=== PATIENT | female | born 1990 | race Caucasian/White ===

== ENCOUNTER 2018-10-23 02:08 | Observation (INO) | payer MEDICAID ==
[~2018-10-23] VITALS: Ht 162.6 cm; Wt 75.0 kg
[~2018-10-23 02:08] MED LIST: ACET-1600 PO; IBUP200T64 PO; TYLENOL PM
--- NOTE | 2018-10-23 03:00 | NUR ---
PT HERE FOR ABD ELDONMPING. VSS. UA SENT TO LAB. LAB AT BEDSIDE. CALL LIGHT IN REACH
[2018-10-23 03:16] LABS: HCG UR SG 1.033 (1.003-1.030); MICROSCOPIC INDICATED
[2018-10-23 03:17] LABS: CULTURE INDICATED? YES
[2018-10-23 03:21] LABS: BASOPHILS # (AUTO) 0.04 x10^3/uL (0-0.1); BASOPHILS % (AUTO) 0 % (0-1); EOSINOPHILS # (AUTO) 0.15 x10^3/uL (0-0.4); EOSINOPHILS % (AUTO) 2 % (1-7); LYMPHOCYTES % (AUTO) 31 % (22-44); MD NO; MEAN CORPUSCULAR HEMOGLOBIN 29.6 pg (27.0-34.8); MEAN CORPUSCULAR HGB CONC 33.7 g/dL (32.4-35.8); MEAN CORPUSCULAR VOLUME 87.8 fL (80-100); MEAN PLATELET VOLUME 7.5 fL (7.4-10.4); MONOCYTES # (AUTO) 0.51 x10^3/uL (0.2-0.8); MONOCYTES % (AUTO) 5 % (2-9); NEUTROPHILS # (AUTO) 6.19 x10^3/uL (1.8-6.8); NEUTROPHILS % (AUTO) 62 % (42-75); PLATELET COUNT 390 x10^3/uL (130-400); RED BLOOD COUNT 4.12 x10^6/uL (3.82-5.3); RED CELL DISTRIBUTION WIDTH 13.6 % (9.6-15.2)
[2018-10-23 03:32] LABS: ALANINE AMINOTRANSFERASE 18 U/L (12-78); ALBUMIN 3.3 g/dL (3.4-5.0); ANION GAP 6 mmol/L (5-15); CALCIUM 8.4 mg/dL (8.5-10.1); CHLORIDE 105 mmol/L (98-107); CREATININE 0.85 mg/dL (0.55-1.02)
[2018-10-23 03:35] LABS: ALKALINE PHOSPHATASE 91 U/L (45-117); BILIRUBIN,TOTAL 0.2 mg/dL (0.2-1.0); TOTAL PROTEIN 7.6 g/dL (6.4-8.2)
[2018-10-23 04:29] VITALS: BP 98/56
--- NOTE | 2018-10-23 05:02 | NUR ---
PT RESTING. VSS. PT WAITING FOR POWER CHECKER CONSULT. PT IN NAD. CALL LIGHT IN REACH
--- NOTE | 2018-10-23 06:05 | NUR ---
[employer] SUPERVISOR DOC IN SEEING PT AT THIS TIME.
--- NOTE | 2018-10-23 06:18 | NUR ---
Assisted in pt care--all clothing removed and placed in bag. All jewelry placed in baggy. 2 belongings bags placed at bedside. Call light in reach.
--- NOTE | 2018-10-23 06:29 | NUR ---
report to or
[2018-10-23] MEDS ORDERED: FENTANYL PF 100 MCG/2ML ONE ×3 (06:39→08:28)
[2018-10-23] MEDS ORDERED: SUCCINYLCHOLINE 20 MG/ML, 10ML ONE (06:39)
[2018-10-23] MEDS ORDERED: MIDAZOLAM 1 MG/ML, 2ML ONE (06:39)
[2018-10-23] MEDS ORDERED: LIDOCAINE-MPF 2% ,5ML ONE (06:39)
[2018-10-23] MEDS ORDERED: EPINEPHRINE 1 MG/ML, 1ML ONE (06:55)
[2018-10-23] MEDS ORDERED: BUPIVACAINE/PF 0.25% ONE (06:55)
[2018-10-23] MEDS ORDERED: PROPOFOL 10 MG/ML, 20ML ONE (07:05)
[2018-10-23] MEDS ORDERED: CEFAZOLIN 1,000 MG ONE (07:05)
[2018-10-23] MEDS ORDERED: ROCURONIUM 10MG/ML,5ML ONE (07:05)
[2018-10-23] MEDS ORDERED: BUPIVACAINE/PF-EPI 0.25% 1:200K INFIL ONE (07:35)
[2018-10-23] MEDS ORDERED: DEXAMETHASONE 4 MG/ML, 1ML ONE ×2 (07:43)
[2018-10-23] MEDS ORDERED: ONDANSETRON 2MG/ML, 2ML ONE (07:43)
[2018-10-23] MEDS ORDERED: SUGAMMADEX 200 MG/2 ML IVPush ONE (07:58)
[2018-10-23] MEDS ORDERED: OXYcodone 5 MG/5 ML ORAL.SOL UDC PO PRN (08:00)
[2018-10-23] MEDS ORDERED: FENTANYL PF 100 MCG/2ML IV PRN (08:00)
[2018-10-23] MEDS ORDERED: LORazepam 2 MG/ML, 1ML IVPush PRN (08:00)
[2018-10-23] MEDS ORDERED: METOCLOPRAMIDE 5 MG/ML, 2ML IV PRN (08:00)
[2018-10-23] MEDS ORDERED: ACETAMINOPHEN 325 MG TABLET PO PRN (08:00)
[2018-10-23] MEDS ORDERED: MEPERIDINE/PF 25MG/0.5ML IVPush PRN (08:00)
[2018-10-23] MEDS ORDERED: SILVER NITRATE STICK TP ONE (08:11)
[2018-10-23] MEDS ORDERED: HYDROmorphone 2 MG/ML, 1ML ONE ×2 (08:28→11:16)
[2018-10-23] MEDS: HYDROmorphone 2 MG/ML, 1ML IVPush PRN ×2 (08:39→09:05)
[2018-10-23] MEDS ORDERED: OXYcodone/APAP 5/325MG TABLET ONE (10:59)
[2018-10-23] MEDS ORDERED: OXYcodone/APAP 5/325MG TABLET PO PRN (11:00)
[2018-10-23] MEDS ORDERED: IBUPROFEN 200 MG TABLET PO SCH (11:00)
[2018-10-23] MEDS ORDERED: HYDROmorphone 1 MG/ML, 1ML IV PRN (11:00)
[2018-10-23] MEDS ORDERED: OXYC-306 PO (11:41)
[2018-10-23] MEDS ORDERED: IBUP-1222 PO (11:43)
== END 2018-10-23 13:31 | disposition home or self-care (01) ==
LOC: ED 02:22 → EDIP 07:14 → 3NW 09:42
PROVIDERS: ADMIT Obstetrics & Gynecology; ATTEND Obstetrics & Gynecology
DX: O00.101 Right tubal pregnancy without intrauterine pregnancy (principal); F11.10 Opioid abuse, uncomplicated; F15.10 Other stimulant abuse, uncomplicated
CPT/HCPCS: 36415; 59151; 76801; 80053; 81001; 81025; 83690; 84702; 85025; 86901; 87086; 88305; 96374; 99291; G0378; J0171; J0330; J0690; J1100; J1170; J2250; J2405; J2704; J3010; J3490